=== PATIENT | female | born 1960 | race Two or more races ===

== ENCOUNTER 2023-04-04 17:43 | Emergency (ER) | payer OTHER ==
[~2023-04-04] VITALS: Ht 160 cm; Wt 87.1 kg
[2023-04-04] MEDS ORDERED: ATORVASTATIN CA10 MG PO (18:02)
[2023-04-04] MEDS ORDERED: LEVOTHYROXINE25 MCG PO (18:03)
[2023-04-04] MEDS ORDERED: CORTISONE60 GM (18:03)
[2023-04-04] MEDS ORDERED: COZAAR25 MG PO (18:03)
[2023-04-04] MEDS ORDERED: GLUMETZA500 MG (18:03)
[2023-04-04] MEDS ORDERED: ASPIRIN 81 MG TAB.CHEW PO SCH (18:15)
[2023-04-04] MEDS ORDERED: FUROsemide 40 MG/4 ML VIAL IV SCH (18:15)
[2023-04-04 18:51] LABS: HEMATOCRIT 33.7 % (36.0-45.00); HEMOGLOBIN 11.6 g/dL (12.0-15.00); MEAN CELL VOLUME 85.8 fL (80.00-100.00); MEAN CORPUSCULAR HEMOGLOBIN 29.6 pg (27.00-32.0); MEAN CORPUSCULAR HGB CONC 34.5 g/dl (32.0-36.0); PLATELET COUNT 475 K/uL (150-450); RED BLOOD COUNT 3.92 M/uL (4.00-6.00); RED CELL DISTRIBUTION WIDTH 13.3 % (11.5-14.5)
[2023-04-04 19:04] LABS: INR 1.06; PROTHROMBIN TIME 11.1 SECONDS (9.0-11.5)
[2023-04-04 19:12] LABS: URIC ACID 5.5 mg/dL (2.5-7.5)
[2023-04-04 19:48] LABS: CREATININE SERUM 1.24 mg/dL (0.55-1.02); GFR 43.83; MAGNESIUM 2.2 mg/dL (1.8-2.4); POTASSIUM 3.84 mEq/L (3.5-5.1)
[2023-04-04 19:49] LABS: DIGOXIN 0.2 ng/ml (0.8-2.0)
[2023-04-04 22:53] LABS: ABG PH 7.451 (7.35-7.45); ABG PO2 70.8 mmHg (80-100); ABG pCO2 35.6 mmHg (35-45); BASE EXCESS 0.7 mmol/l; BICARBONATE 24.2 mmol/l (23-25); Tco2 25.3 mmol/l; allen test SATISFACTORY; o2 21 %; puncture site RADIAL LEFT
[2023-04-04 22:54] LABS: SaO2 94.9 %
== END 2023-04-04 22:22 | disposition home or self-care (01) ==
LOC: ER 17:43
PROVIDERS: Emergency Medicine
DX: I50.9 Heart failure, unspecified (principal); Z20.822 Contact with and (suspected) exposure to COVID-19; I10 Essential (primary) hypertension